=== PATIENT | male | born 1965 | race Caucasian/White ===

== ENCOUNTER 2020-04-09 23:39 | Emergency (ER) | payer OTHER, SELFPAY ==
[2020-04-09 23:49] VITALS: BP 149/52; PULSE 90; RESP 18; TEMP 36.9; O2SAT 100
--- NOTE | 2020-04-10 00:13 | ED.DENTAL ---
HPI - Dental/Oral General Chief complaint: Dental/Oral Stated complaint: Dental abscess Time Seen by Provider: 04/09/20 23:42 Source: patient Mode of arrival: ambulatory Limitations: no limitations History of Present Illness HPI Narrative: Patient is a 54-year-old male who presents with dental pain for the last several days with swelling to the right lower gumline patient notes history of gross dental decay does not have a dentist has been trying [id number] medications with minimal improvement patient on arrival in no distress denies any fever chills nausea vomiting Related Data Allergies Allergy/AdvReac Type Severity Reaction Status Date / Time Penicillins AdvReac Severe as child Verified 04/09/20 23:49 Review of Systems Review of Systems: All systems reviewed & are unremarkable except as noted in HPI and below PMFSH Social History Social History (Updated 04/10/20 @ 00:14 by Jose Daniel Holden PA-C) Tobacco type: cigars Exam Narrative: Exam Narrative: GENERAL: Well-appearing, well-nourished, and in no acute distress. HEAD: Normocephalic, atraumatic. EYES: PERRLA and EOMI. ENT: Nares clear, no rhinorrhea or epistaxis. Mucous membranes moist. Oropharynx without tonsillar hypertrophy exudate or other lesions. Swelling of the right lower gumline anteriorly with gross dental caries uvula midline no trismus or drooling NECK: Supple. No adenopathy or masses. CHEST: Clear to auscultation. No respiratory distress. No wheezes rales or rhonchi HEART: Regular rate and rhythm. No murmur heard. EXTREMITIES: Normal range of motion. No edema. SKIN: Warm, dry, no rash. NEURO: No focal deficits. Alert and oriented x3. PSYCH: Normal mood and affect. Course Course Emergency Course: Patient in the room in no distress aware of case findings treatment plan diagnosis agreeing to follow-up with primary care dentistry Vital Signs Vital signs: Vital Signs Temperature 98.5 F 04/09/20 23:49 Pulse Rate 90 04/09/20 23:49 Respiratory Rate 18 04/09/20 23:49 Blood Pressure 149/52 H 04/09/20 23:49 Pulse Oximetry 100 04/09/20 23:49 Temperature 98.5 F 04/09/20 23:49 Pulse Rate 90 04/09/20 23:49 Respiratory Rate 18 04/09/20 23:49 Blood Pressure 149/52 H 04/09/20 23:49 Pulse Oximetry 100 04/09/20 23:49 MDM - Dental/Oral MDM Narrative Medical decision making narrative: Paitents pain and complaint coupled with physical findings are consistant with dentalgia. There are no focal signs of space occupying lesions that are compromising to the ariway. The floor of the mouth is soft with no signs of Ludwigs Angina. Patient is without trismus or drooling and able to swallow secreations. Patient is felt appropriate for discharge home with dental follow up. Discharge Plan Discharge Clinical Impression: Dental abscess Patient Disposition: Home, Self-Care Condition: Stable Instructions: Antibiotic Form, Dental Abscess (ED) Additional Instructions: Follow-up with dentistry in the next 7 days for reevaluation Return if symptoms worsen or concerns or any increase in redness swelling pain fever over 100.5 vomiting unable to swallow or open the mouth Only take medications as directed Stay well-hydrated Prescriptions: New clindamycin HCl 150 mg capsule 450 mg PO Q8H 10 Days Qty: 90 RF: 0 chlorhexidine gluconate [Peridex] 0.12 % mouthwash 15 ml mucous membrane BID Qty: 1500 RF: 0 Follow-up/Referrals: PHYSICIAN,ACTIVITIES SPECIALIST [Primary Care Provider] - Dental Referral Line [Outside] [facility] [Outside] [facility] [place] [Outside] [facility] [Outside] Stand Alone Forms: Work/School Release IP
[2020-04-10] MEDS: CLINDAMYCIN HCL 150 MG CAP 450 MG PO (00:46)
== END 2020-04-10 00:46 | disposition home or self-care (01) ==
PROVIDERS: Emergency Provider Emergency Medicine
DX: K04.7 Periapical abscess without sinus (principal); F17.290 Nicotine dependence, other tobacco product, uncomplicated
CPT/HCPCS: 99283; A9270